=== PATIENT | male | born 1960 | race Caucasian/White ===

== ENCOUNTER 2018-07-27 08:18 | Day surgery (SDC) | payer OTHER ==
[~2018-07-27] VITALS: Ht 180.3 cm; Wt 123.0 kg
[~2018-07-27 08:18] MED LIST: BUPIVACAINE/PF-EPI 0.25% 1:200K ONE; LISI-167 PO; LISI-170 PO; SUGAMMADEX 200 MG/2 ML IVPush ONE
[2018-07-27 09:33] VITALS: BP 118/78
[2018-07-27] MEDS: LACTATED RINGERS 1,000 ML IV SCH ×2 (09:35→12:03)
[2018-07-27] MEDS ORDERED: PROPOFOL 10 MG/ML, 20ML ONE ×2 (10:30)
[2018-07-27] MEDS ORDERED: MIDAZOLAM 1 MG/ML, 2ML ONE (10:31)
[2018-07-27] MEDS ORDERED: FENTANYL PF 100 MCG/2ML ONE ×2 (10:31→11:27)
[2018-07-27] MEDS ORDERED: SUCCINYLCHOLINE 20 MG/ML, 10ML ONE (10:32)
[2018-07-27] MEDS ORDERED: PROPOFOL 50 ML ONE (10:46)
[2018-07-27] MEDS ORDERED: MEPERIDINE/PF 25MG/0.5ML IVPush PRN (11:30)
[2018-07-27] MEDS ORDERED: OXYcodone 5 MG/5 ML ORAL.SOL UDC PO PRN (11:30)
[2018-07-27] MEDS ORDERED: HYDROcodone/APAP 7.5-325MG/15ML UDC PO PRN (11:30)
[2018-07-27] MEDS ORDERED: MORPHINE SULFATE 4 MG/ML, 1ML ONE (11:44)
[2018-07-27] MEDS ORDERED: OXYcodone 5 MG/5 ML ORAL.SOL UDC ONE (11:44)
[2018-07-27] MEDS: MORPHINE SULFATE 4 MG/ML, 1ML IVPush PRN ×2 (11:46→11:50)
[2018-07-27] MEDS ORDERED: HYDROmorphone 2 MG/ML, 1ML ONE (12:04)
[2018-07-27] MEDS: HYDROmorphone 1 MG/ML, 1ML IV PRN ×3 (12:06→12:18)
[2018-07-27] MEDS ORDERED: FENTANYL PF 100 MCG/2ML IVPush PRN (13:00)
[2018-07-27] MEDS ORDERED: SUGAMMADEX 200 MG/2 ML IVPush ONE (13:12)
== END 2018-07-27 15:15 | disposition home or self-care (01) ==
LOC: OUT 08:18
PROVIDERS: ATTEND Surgery
DX: K80.10 Calculus of gallbladder with chronic cholecystitis without obstruction (principal); E78.00 Pure hypercholesterolemia, unspecified; I10 Essential (primary) hypertension; E66.9 Obesity, unspecified; Z98.890 Other specified postprocedural states; Z72.89 Other problems related to lifestyle
CPT/HCPCS: 47562; 88304; J0330; J1170; J2250; J2704; J3010; J7120

== ENCOUNTER 2020-10-14 17:34 | Emergency (ER) | payer OTHER ==
[~2020-10-14] VITALS: Ht 180.3 cm; Wt 124.0 kg
[~2020-10-14 17:34] MED LIST changes: -BUPIVACAINE/PF-EPI 0.25% 1:200K ONE; -SUGAMMADEX 200 MG/2 ML IVPush ONE
--- NOTE | 2020-10-14 18:56 | NUR ---
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
--- NOTE | 2020-10-14 19:20 | NUR ---
patient ambulated to bathroom with steady gait and no SOB. in NAD. at bedside. patient reports intermittent L lower back pain on occassion but this has been chronic for months per and patient statement. urine dark yellow. no foul order. states he has dyruria. warm blanket provided. VS remain stable on RA. will continue to monitor.
[2020-10-14 19:36] LABS: MICROSCOPIC AUTO
[2020-10-14 19:51] LABS: BASOPHILS % (AUTO) 1 % (0-1); EOSINOPHILS % (AUTO) 2 % (1-7); LYMPHOCYTES % (AUTO) 27 % (22-44); MEAN CORPUSCULAR HEMOGLOBIN 30.9 pg (27.5-34.5); MEAN CORPUSCULAR HGB CONC 33.8 g/dL (33.2-36.2); MEAN PLATELET VOLUME 8.3 fL (7.4-10.4); MONOCYTES % (AUTO) 7 % (2-9); NEUTROPHILS % (AUTO) 63 % (42-75); PLATELET COUNT 184 x10^3/uL (130-400); RED BLOOD COUNT 5.22 x10^6/uL (4.38-5.82); RED CELL DISTRIBUTION WIDTH 14.4 % (9.4-14.8)
[2020-10-14 19:57] LABS: MD NO
[2020-10-14 20:00] LABS: ANION GAP 7 mmol/L (5-15); CALCIUM 8.4 mg/dL (8.5-10.1); CHLORIDE 112 mmol/L (98-107); CREATININE 0.86 mg/dL (0.7-1.3)
--- NOTE | 2020-10-14 20:31 | NUR ---
discharge instructions reviewed with patient . in NAD. no further questions at this time. all personal belongings with patient. steady gait to lobby.
[2020-10-14 20:32] VITALS: BP 143/92
== END 2020-10-14 20:34 | disposition home or self-care (01) ==
LOC: ED 19:00
DX: R30.0 Dysuria (principal); R31.9 Hematuria, unspecified; I10 Essential (primary) hypertension
CPT/HCPCS: 36415; 80048; 81001; 85025; 99283